=== PATIENT | male | born 2000 ===

== ENCOUNTER 2024-02-06 08:45 | Outpatient (CLI) | payer OTHER ==
[2024-02-06 14:14] LABS: NEISSERIA GONORRHOEAE DNA NEGATIVE (NEGATIVE); TRICHOMONAS VAGINALIS DNA NEGATIVE (NEGATIVE)
[2024-02-06 14:34] LABS: CHLAMYDIA TRACHOMATIS DNA POSITIVE (NEGATIVE)
[2024-02-07 03:10] LABS: HIV SCREEN 4TH GENERATION Non Reactive (Non Reactive)
[2024-02-07 06:10] LABS: RPR Non Reactive (Non Reactive)
[2024-02-07 08:10] LABS: HSV 1 IGG TYPE SPEC <0.91 index (0.00-0.90); HSV 2 IGG TYPE SPEC <0.91 index (0.00-0.90)
[2024-02-09 06:08] LABS: HCV AB Non Reactive (Non Reactive)
== END 2024-02-06 09:00 | disposition home or self-care (01) ==
LOC: LAB.N 08:45
PROVIDERS: ATTEND Physician Assistant Medical
DX: Z11.3 Encounter for screening for infections with a predominantly sexual mode of transmission (principal)
CPT/HCPCS: 86592; 86695; 86696; 86803; 87389; 87491; 87591; 87661

== ENCOUNTER 2024-03-08 08:45 | Outpatient (CLI) | payer OTHER ==
[2024-03-08 22:34] LABS: CHLAMYDIA TRACHOMATIS DNA NEGATIVE (NEGATIVE); NEISSERIA GONORRHOEAE DNA NEGATIVE (NEGATIVE); TRICHOMONAS VAGINALIS DNA NEGATIVE (NEGATIVE)
== END 2024-03-08 09:00 | disposition home or self-care (01) ==
LOC: LAB.N 08:45
PROVIDERS: ATTEND Physician Assistant Medical
DX: R36.9 Urethral discharge, unspecified (principal)
CPT/HCPCS: 87491; 87591; 87661